=== PATIENT | male | born 1960 | race Caucasian/White ===

== ENCOUNTER 2019-10-31 16:28 | Emergency (ER) | payer OTHER ==
--- NOTE | 2019-10-31 17:05 | PDOC ---
Rapid Medical Evaluation Time Seen by Provider: 10/31/19 17:05 Medical Evaluation: 10/31/19 17:05 I performed a brief in-person evaluation of this patient. 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 Pertinent physical exam findings: Alert, oriented, no distress. No carotid bruit. No neurologic deficits. No HTN. I have ordered the following: EKG Cardiac labs CXR Patient to proceed to ED for further evaluation. Discharge Disposition - Diagnosis Neck pain - Referrals - Patient Instructions - Post Discharge Activity
[2019-10-31 17:09] VITALS: TEMP 98.1; BMI 43.0
[2019-10-31 17:28] LABS: BASO % 1.2 % (0-2.0); EOS % 6.2 % (0-4.5); HEMATOCRIT 41.3 % (35.4-49); LYMPH % 19.9 % (8-40); MCH 31.3 pg (25.7-33.7); MCHC 33.8 g/dl (32.0-35.9); MEAN CELL VOLUME 92.5 fl (80-96); MEAN PLT VOLUME 8.1 fl (7.5-11.1); MONO % 5.3 % (3.8-10.2); NEUT % 67.4 % (42.8-82.8); PLATELET COUNT 239 K/MM3 (134-434); RBC 4.47 M/mm3 (4.00-5.60); RDW 13.3 % (11.9-15.9); WHITE BLOOD COUNT 8.3 K/mm3 (4.0-10.0)
[2019-10-31 17:51] LABS: INR 0.98 (0.83-1.09); PROTHROMBIN TIME (PATIENT) 11.6 SEC (9.7-13.0)
[2019-10-31 18:10] LABS: ALBUMIN 4.3 g/dl (3.4-5.0); ALK PHOS 70 U/L (45-117); ANION GAP 7 MMOL/L (8-16); BILIRUBIN,TOTAL 0.3 mg/dL (0.2-1); BLOOD UREA NITROGEN 21.4 mg/dL (7-18); CALCIUM 9.4 mg/dL (8.5-10.1); CHLORIDE 102 mmol/L (98-107); CO2 28 mmol/L (21-32); CREATININE 1.1 mg/dL (0.55-1.3); GLUCOSE,RANDOM 111 mg/dL (74-106); POTASSIUM 4.9 mmol/L (3.5-5.1); SGOT/AST 32 U/L (15-37); SGPT/ALT 48 U/L (13-61); SODIUM 137 mmol/L (136-145); TOT PROT 7.7 g/dl (6.4-8.2)
--- NOTE | 2019-10-31 18:34 | PDOC ---
History of Present Illness - General Chief Complaint: Chest Pain Stated Complaint: PAIN AND PRESURE IN NECK Time Seen by Provider: 10/31/19 17:05 History Source: Patient - History of Present Illness Presenting Symptoms: Chest Pain Past History - Past Medical History Allergies/Adverse Reactions: Allergies Allergy/AdvReac Type Severity Reaction Status Date / Time No Known Allergies Allergy Verified 10/31/19 17:06 - Psycho Social/Smoking Cessation Hx Smoking History: Never smoked Information on smoking cessation initiated: No Hx Alcohol Use: No Drug/Substance Use Hx: No Review of Systems - Review of Systems Constitutional: No: Chills, Fever Respiratory: No: Cough Cardiac (ROS): Yes: Chest Pain *Physical Exam - Vital Signs Last Vital Signs Temp Pulse Resp BP Pulse Ox 98.1 F 74 18 124/75 97 10/31/19 17:06 10/31/19 21:15 10/31/19 21:15 10/31/19 21:15 10/31/19 21:15 - Physical Exam General Appearance: Yes: Appropriately Dressed. No: Apparent Distress HEENT: positive: Normal Voice Neck: positive: Supple Respiratory/Chest: positive: Lungs Clear, Normal Breath Sounds. negative: Respiratory Distress Cardiovascular: positive: Regular Rate, S1, S2 Extremity: negative: Pedal Edema Integumentary: positive: Dry, Warm Neurologic: positive: Fully Oriented, Alert, Normal Mood/Affect Heart Score/ECG Review - History History: Slightly suspicious - Electrocardiogram EKG: Normal - Age Age: 45-65 - Risk Factors Risk Factors Heart Score: Yes Hx Hypercholesterolemia, Yes Hx Hypertension, Yes Hx Obesity Based on the list above the patient has:: >/=3 risk factors or Hx atherosclerotic disease - Troponin Troponin: </= normal limit - Score Heart Score - Total: 3 - ECG Intrepretation Comment:: 10/31/19 18:45 Twelve-lead EKG was performed and reviewed by me. There is normal sinus rhythm with a normal rate. The axis is normal. The intervals are normal. There are no ST or T wave abnormalities. Impression: Normal twelve-lead EKG ED Treatment Course - LABORATORY CBC & Chemistry Diagram: 10/31/19 17:13 10/31/19 17:13 - ADDITIONAL ORDERS Additional order review: 10/31/19 17:13 RBC 4.47 MCV 92.5 MCHC 33.8 RDW 13.3 MPV 8.1 Neutrophils % 67.4 Lymphocytes % 19.9 Monocytes % 5.3 Eosinophils % 6.2 H Basophils % 1.2 - Medications Given in the ED: ED Medications Discontinued Medications Generic Name Dose Route Start Last Admin Trade Name Lalita PRN Reason Stop Dose Admin Acetaminophen 650 mg 10/31/19 19:02 10/31/19 19:42 Tylenol - PO 10/31/19 19:03 650 mg ONCE ONE Administration Medical Decision Making - Medical Decision Making 10/31/19 18:24 59 yo M, history of HTN, HLD, CAD with 1 stent several years ago at [facility], here with chest pain that 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 Denies SOB, diaphoresis, nausea or vomiting. Unclear if similar pain prior to his stent per patient. Does not remember last stress test. Also complaining of neck and jaw pain that started today but states he has had this pain several x in the past and had recent work- up for same but does not remember what type of procedure per family See exam CP Resolved 4 days ago Currently asx R/o ACS, less likely PE or dissection Stable here w/ unremarkable exam EKG w/ incomplete RBB, no old to compare, cxr/labs unremarkable Given heart score, may discharge but will discuss dispo w/ Dr Rodriguez Regarding recurrent neck/jaw pain, discussed with Dr. Davis who states that carotid dopplers were done a week ago that was negative. States if patient discharged can be seen in office tomorrow and pt to call weather teacher to make appt to arrange stress test 10/31/19 19:[address] Rodriguez who reviewed EKG and recommends 1 additional troponin and if negative can be discharged home. Signed out to LUZ MARIA Recio at this time Discharge - Discharge Information Problems reviewed: Yes Clinical Impression/Diagnosis: Neck pain Chest pain Qualifiers: Chest pain type: unspecified Qualified Code(s): R07.9 - Chest pain, unspecified Condition: Improved Disposition: HOME - Follow up/Referral Referrals: Yazan Davis MD [Primary Care Provider] - - Patient Discharge Instructions Patient Printed Discharge Instructions: DI for Chest Pain Additional Instructions: Please follow-up with Dr. Davis after 2 PM tomorrow and call your weather teacher to make an appointment for stress test - Post Discharge Activity
[2019-10-31] MEDS ORDERED: ACETAMINOPHEN 325 MG TABLET (FP) PO ONE (19:02)
[2019-10-31] MEDS ORDERED: ACETAMINOPHEN 325 MG TABLET (FP) ONE (19:31)
--- NOTE | 2019-10-31 20:00 | PDOC ---
*Physical Exam - Vital Signs Last Vital Signs Temp Pulse Resp BP Pulse Ox 98.1 F 70 18 132/83 97 10/31/19 17:06 10/31/19 17:06 10/31/19 17:06 10/31/19 17:06 10/31/19 17:06 - Physical Exam General Appearance: Yes: Appropriately Dressed. No: Apparent Distress HEENT: positive: Normal ENT Inspection Neck: positive: Trachea midline, Supple Respiratory/Chest: positive: Lungs Clear, Normal Breath Sounds. negative: Respiratory Distress, Accessory Muscle Use Cardiovascular: positive: Regular Rhythm, Regular Rate. negative: Murmur Gastrointestinal/Abdominal: positive: Normal Bowel Sounds, Soft. negative: Tender Musculoskeletal: positive: Normal Inspection. negative: CVA Tenderness Extremity: positive: Normal Inspection ED Treatment Course - LABORATORY CBC & Chemistry Diagram: 10/31/19 17:13 10/31/19 17:13 - ADDITIONAL ORDERS Additional order review: Laboratory Results 10/31/19 10/31/19 17:13 17:13 PT with INR 11.60 INR 0.98 Sodium 137 Potassium 4.9 Chloride 102 Carbon Dioxide 28 Anion Gap 7 L BUN 21.4 H Creatinine 1.1 Est GFR (CKD-EPI)AfAm 85.91 Est GFR (CKD-EPI)NonAf 74.12 Random Glucose 111 H Calcium 9.4 Total Bilirubin 0.3 AST 32 ALT 48 Alkaline Phosphatase 70 Creatine Kinase 411 H Creatine Kinase Index 1.8 CK-MB (CK-2) 7.8 H Troponin I < 0.02 Total Protein 7.7 Albumin 4.3 10/31/19 17:13 RBC 4.47 MCV 92.5 MCHC 33.8 RDW 13.3 MPV 8.1 Neutrophils % 67.4 Lymphocytes % 19.9 Monocytes % 5.3 Eosinophils % 6.2 H Basophils % 1.2 - Medications Given in the ED: ED Medications Discontinued Medications Generic Name Dose Route Start Last Admin Trade Name Freq PRN Reason Stop Dose Admin Acetaminophen 650 mg 10/31/19 19:02 10/31/19 19:42 Tylenol - PO 10/31/19 19:03 650 mg ONCE ONE Administration ED Progress Note - Progress Note Progress Note: 10/31/19 20:00 Received signout from ELISSA Nicole. Briefly this is a 59-year-old male with history of hypertension, hyperlipidemia , CAD status post stent remotely with chest pain that started 5 days ago were spontaneously resolved. While working today developed pain in his right jaw and neck. Collateral information received from primary doctor shows patient had negative carotid Dopplers performed 1 week ago. EKG was incomplete right bundle branch without ST elevations or depressions. CBC is unremarkable CMP notable for BUN-21.4, creatinine kinase 411, CK-MB 7.8 with a troponin of less than 0.02. Elevated CK-MB likely due to azotemia. Second set of cardiac enzymes currently pending Disposition pending repeat labs. 10/31/19 21:00 Repeat troponin is less than 0.02. Results of been discussed with the patient and his son who verbalized understanding of discharge instructions. They understand they should follow-up with patient's primary doctor tomorrow for reevaluation. Discharge - Discharge Information Problems reviewed: Yes Clinical Impression/Diagnosis: Neck pain Chest pain Qualifiers: Chest pain type: unspecified Qualified Code(s): R07.9 - Chest pain, unspecified Condition: Improved Disposition: HOME - Admission No - Follow up/Referral Referrals: Yazan Davis MD [Primary Care Provider] - - Patient Discharge Instructions Patient Printed Discharge Instructions: DI for Chest Pain Additional Instructions: Please follow-up with Dr. Davis after 2 PM tomorrow and call your hatch supervisor to make an appointment for stress test - Post Discharge Activity
[2019-10-31 21:28] VITALS: BP 124/75; PULSE 74
--- NOTE | 2019-11-01 09:18 | EKG ---
Test Reason : Blood Pressure : / mmHG Vent. Rate : 065 BPM Atrial Rate : 065 BPM P-R Int : 144 ms QRS Dur : 094 ms QT Int : 426 ms P-R-T Axes : 048 029 049 degrees QTc Int : 443 ms NORMAL SINUS RHYTHM INCOMPLETE RIGHT BUNDLE BRANCH BLOCK BORDERLINE ECG NO PREVIOUS ECGS AVAILABLE Confirmed by Jarred Mera MD ([id number]) on 11/01/2019 9:17:55 AM Referred By: Confirmed By:Jarred Mera MD
== END 2019-10-31 21:15 | disposition home or self-care (01) ==
LOC: JER 16:28
DX: R07.9 Chest pain, unspecified (principal); M54.2 Cervicalgia; I25.10 Atherosclerotic heart disease of native coronary artery without angina pectoris; I10 Essential (primary) hypertension; Z95.5 Presence of coronary angioplasty implant and graft; E78.00 Pure hypercholesterolemia, unspecified; E78.5 Hyperlipidemia, unspecified; E66.9 Obesity, unspecified; Z68.41 Body mass index [BMI] 40.0-44.9, adult
CPT/HCPCS: 36415; 71046-TC-FY; 80053; 82550; 82553; 84484; 85025; 85610; 93005; 93010; 99285-25